=== PATIENT | male | born 1970 | race Caucasian/White ===

== ENCOUNTER 2021-05-06 12:26 | Emergency (ER) | payer OTHER ==
[~2021-05-06] VITALS: Ht 175.3 cm; Wt 81.6 kg
[2021-05-06] MEDS ORDERED: LIPITOR20 MG PO (12:35)
[2021-05-06] MEDS ORDERED: COZAAR100 MG PO (12:35)
[2021-05-06] MEDS ORDERED: DICLOFENAC POTA50 MG PO (16:02)
[2021-05-06] MEDS ORDERED: ORPHENADRINE C100 MG PO (16:02)
== END 2021-05-06 16:17 ==
LOC: ER 12:26
DX: M25.561 Pain in right knee (principal); I10 Essential (primary) hypertension; Z88.0 Allergy status to penicillin